=== PATIENT | female | born 1985 | race Caucasian/White ===

== ENCOUNTER 2018-06-17 06:20 | Inpatient (IN) | payer OTHER ==
[~2018-06-17] VITALS: Ht 167.6 cm; Wt 73.0 kg
[~2018-06-17 06:20] MED LIST: RINGERS SOLUTION,LACTATED 1,000 ML IV ONE
[2018-06-17] MEDS ORDERED: CITRIC ACID/SODIUM CITRATE 30 ML SOLUTION UDCUP PO ONE (06:30)
[2018-06-17] MEDS ORDERED: METOCLOPRAMIDE HCL 5 MG/ML 2 ML VIAL IVP ONE (06:30)
[2018-06-17 06:57] VITALS: BP 118/60
[2018-06-17] MEDS ORDERED: CLINDAMYCIN 900 MG/D5% WATER 50 ML IV ONE (07:00)
[2018-06-17 07:01] LABS: HEMATOCRIT 35.3 % (36-46); LYMPHOCYTES # (AUTO) 2.2 K/uL (1.0-4.8); LYMPHOCYTES % (AUTO) 28.3 % (22.0-44.0); MEAN CORPUSCULAR HEMOGLOBIN 31.9 pg (26.0-34.0); MEAN CORPUSCULAR HGB CONC 33.9 G/dL (31.0-37.0); MEAN CORPUSCULAR VOLUME 94 fL (80-100); MONOCYTES # (AUTO) 0.7 K/uL (0.1-1.0); MONOCYTES % (AUTO) 8.6 % (2.0-9.0); NEUTROPHILS # (AUTO) 4.6 K/uL (1.8-7.7); NEUTROPHILS % (AUTO) 60.1 % (40.0-70.0); PLATELET COUNT (AUTO) 191 K/uL (150-450); RED BLOOD CELL COUNT(AUTO) 3.76 MIL/uL (4.00-5.20); RED CELL DISTRIBUTION WIDTH 13.7 % (11.5-14.5)
[2018-06-17] MEDS ORDERED: MORPHINE SULFATE/PF 1 MG/ML 10 ML AMP ONE (07:07)
[2018-06-17] MEDS ORDERED: OXYGEN THERAPY IH SCH (08:45)
[2018-06-17] MEDS ORDERED: MEPERIDINE HCL/PF 25 MG/0.5 ML AMP IVP PRN (08:45)
[2018-06-17] MEDS ORDERED: FentaNYL CITRATE-PF 100 MCG/2 ML VIAL IVP PRN (08:45)
[2018-06-17] MEDS: MAGNESIUM HYDROXIDE SUSPENSION 30 ML UDCUP PO SCH ×2 (09:00→21:56)
[2018-06-17] MEDS ORDERED: LANOLIN 7 GM OINTMENT TP PRN (09:00)
[2018-06-17] MEDS ORDERED: ACETAMINOPHEN 1000 MG/ISO-OSM 100 ML IV ONE (09:05)
[2018-06-17] MEDS: ACETAMINOPHEN 1000 MG/ISO-OSM 100 ML IV SCH ×2 (09:09→17:33)
[2018-06-17] MEDS ORDERED: PNEUMOCOCCAL VACCINE POLYVALENT 0.5 ML VIAL [PPSV23] IM ONE (11:30)
[2018-06-17] MEDS: DEXTROSE 5%-0.45% SODIUM CHL 1,000 ML IV SCH ×3 (13:12→22:36)
[2018-06-17] MEDS ORDERED: ROPIVACAINE HCL/PF 0.2% 0 ML ED ONE (16:16)
[2018-06-17] MEDS: NALBUPHINE HCL 10 MG/ML VIAL IVP SCH ×2 (17:24→23:42)
[2018-06-18] MEDS: ACETAMINOPHEN 1000 MG/ISO-OSM 100 ML IV SCH ×2 (01:34→09:42)
[2018-06-18] MEDS: IBUPROFEN 800 MG TABLET PO SCH ×4 (02:00→21:13)
[2018-06-18] MEDS ORDERED: METOCLOPRAMIDE HCL 5 MG/ML 2 ML VIAL IVP ONE (03:55)
[2018-06-18] MEDS ORDERED: OXYTOCIN 10 UNITS/ML VIAL IM ONE (03:55)
[2018-06-18] MEDS ORDERED: EPHEDrine SULFATE 50 MG/ML VIAL IM ONE (03:55)
[2018-06-18] MEDS ORDERED: GLYCOPYRROLATE 0.2 MG/ML VIAL IM ONE (03:55)
[2018-06-18] MEDS ORDERED: ONDANSETRON HCL 4 MG/2 ML VIAL IVP ONE (03:55)
[2018-06-18] MEDS ORDERED: FentaNYL CITRATE-PF 100 MCG/2 ML VIAL IVP ONE (03:55)
[2018-06-18] MEDS: DEXTROSE 5%-0.45% SODIUM CHL 1,000 ML IV SCH (04:00)
[2018-06-18] MEDS: NALBUPHINE HCL 10 MG/ML VIAL IVP SCH (05:42)
[2018-06-18] MEDS: MAGNESIUM HYDROXIDE SUSPENSION 30 ML UDCUP PO SCH ×3 (09:00→21:00)
[2018-06-18] MEDS: ACETAMINOPHEN/CODEINE 300-30 MG TABLET PO PRN (18:01)
[2018-06-19] MEDS: IBUPROFEN 800 MG TABLET PO SCH ×4 (02:23→21:19)
[2018-06-19] MEDS: ACETAMINOPHEN/CODEINE 300-30 MG TABLET PO PRN ×3 (06:37→21:19)
[2018-06-19 08:24] VITALS: BP 123/72
[2018-06-20] MEDS: ACETAMINOPHEN/CODEINE 300-30 MG TABLET PO PRN ×3 (00:55→12:21)
[2018-06-20] MEDS: IBUPROFEN 800 MG TABLET PO SCH (03:07)
[2018-06-20] MEDS ORDERED: IBUP-2071 PO (14:05)
[2018-06-20] MEDS ORDERED: DSS100 PO (14:06)
[2018-06-20] MEDS ORDERED: ACET1TAB12 PO (14:10)
== END 2018-06-20 15:55 | disposition home or self-care (01) | DRG 788 ==
LOC: OBSVTOIN 06:20 → 4S 06:20
PROVIDERS: ADMIT Obstetrics & Gynecology; ATTEND Obstetrics & Gynecology
PROC: 10D00Z1 Extraction of Products of Conception, Low, Open Approach (ICD-10-PCS; principal; 2018-06-17)
PROC: 3E02340 Introduction of Influenza Vaccine into Muscle, Percutaneous Approach (ICD-10-PCS; 2018-06-18)
DX: O76 Abnormality in fetal heart rate and rhythm complicating labor and delivery (principal); Z3A.39 39 weeks gestation of pregnancy; Z23 Encounter for immunization; Z88.0 Allergy status to penicillin
CPT/HCPCS: 86850; 86900; 86901; 87081; 90471; J0131; J2300; J2405; J2590; J2765; J2795; J3010; J3490